=== PATIENT | female | born 1975 | race Caucasian/White ===

== ENCOUNTER 2023-04-29 08:18 | Day surgery (SDC) | payer OTHER, MEDICAID, SELFPAY ==
[2023-04-22 10:58] VITALS: BMI 29.0
[2023-04-29] VITALS (10 sets, daily range): BP systolic 107–129; BP diastolic 63–83; PULSE 63–99; RESP 9–18; TEMP 36.2–37.2; O2SAT 97–99; BMI 29.0
--- NOTE | 2023-04-29 | PATH_ITS ---
[facility] Accession Number: [id number] No. of containers..01 Tissue . 01 Material submitted: . foot - LEFT FOOT MASS . 01 Diagnosis: Left Foot, Excision: Fragment of bone with mild reactive changes; see comment. [facility] 05/15/2023 1106 Local . 01 Comment: An additional step section is examined. The findings are not entirely specific. There are no diagnostic features of a ganglion cyst identified in the sections examined. Clinical correlation is suggested. . This case has been reviewed by Dr. Karon Evangelista, who agrees with the above diagnosis. . 01 Electronically signed: . Leon Leblanc MD, Dermatopathologist NPI- [id number] . 01 Gross description: . The specimen is received in formalin labeled with the patient's name, , and left foot mass consists of a palmer hard tissue fragment consistent with osseous tissue measuring 1.6 x 0.9 x 0.5 cm. The specimen is trisected and submitted entirely in cassette A1 following decalcification. ([id number]) /MRV 05/02/2023 1300 Local . 01 Pathologist provided ICD-10: M89.9 . 01 CPT . 626299, [id number] Specimen Comment: A courtesy copy of this report has been sent to [facility] Performed at: 01 [facility] [address] [place] [address], [place], [place] [id number] MD Inocencio Dale MD Phone: [phone]
--- NOTE | 2023-04-29 08:32 | PM.HP.1 ---
History of Present Illness History of Present Illness Chief complaint: Left foot soft tissue mass Narrative: 47 year old female with recent onset of left foot pain with MRI positive for soft tissue mass. 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 Patient denies known trauma or previous condition in the past. An unsuccessful attempt for aspiration/injection was made prior to referral to Podiatry clinic. Discussed treatment options with patient electing to proceed with surgical intervention. Patient denines n/v/f/c/sob/cp. PFSH Medical History Thyroglossal duct cyst Surgical History H/O breast augmentation History of hysterectomy Hx of colonoscopy Social History household members: significant other Smoking Status: Never smoker alcohol intake: current Meds Home Medications and Allergies Home Medications Medication Instructions Recorded Confirmed Type valacyclovir 1 gram tablet 1,000 mg PO DAILY 04/22/23 04/22/23 History Allergies Allergy/AdvReac Type Severity Reaction Status Date / Time Sulfa (Sulfonamide Allergy Unknown Hives Verified 04/22/23 10:54 Antibiotics) codeine AdvReac Unknown nausea, Verified 04/22/23 10:54 headache green tea Allergy Severe disorientation, Uncoded 04/22/23 10:54 vomiting Review of Systems Review of Systems Narrative: Review of Systems Constitutional: Negative except as documented in history of present illness. Eye: Negative. Ear/Nose/Mouth/Throat: Negative. Respiratory: Negative. Cardiovascular: Negative. Gastrointestinal: Negative. Genitourinary: Negative. Musculoskeletal: Negative. Neurologic: Paresthesia to left foot. Psychiatric: Negative. Assessment & Plan Assessment and plan (1) Mass of joint of left foot: Status: Acute Plan Patient seen and evaluated. Discussed treatment options with patient electing to proceed with surgical intervention. Benefits and risks, such as infection, recurrence, neurovascular damage, blood clot, delayed healing, or other complications discussed with all patient's questions answered to satisfaction and no guarantees made. Patient elected to proceed with surgical removal of the soft tissue mass.
[2023-04-29] MEDS: LACTATED RINGERS 1,000 ML 100 ML IV ×2 (09:08→10:19)
[2023-04-29] MEDS: CEFAZOLIN 2 GM/100 ML PREMIX 100 ML IV (09:48)
--- NOTE | 2023-04-29 09:59 | SUR.OPER ---
Supine on padded OR bed, head on pillow, arms secured on padded arm boards at <90 degrees abduction, legs uncrossed, safety belt at thigh, tape over blanket over lower legs.
[2023-04-29] MEDS: BUPIVACAINE 0.5% (PF) 30 ML VIAL INJ (10:09)
--- NOTE | 2023-04-29 11:18 | P.OP_ITS ---
Operative Date/Time/Diagnoses Date of procedure: 04/29/23 Pre-op diagnosis: 1. Left foot soft tissue mass 2. Left foot neuritis. Post-op diagnosis: other (1. Left foot bone cyst 2. Left foot neuritis) Procedure & Clinicians Procedure: Left foot excision of bone cyst (CPT 14777) Same procedure as scheduled: No Indications: Painful lump at the midfoot and radiating nerve pain for more than 5 months. Surgeon: Pramod Prince Click Yes if Unassisted: Yes Anesthesia Type: Sedation Operative Notes Findings: 1.2 x 1.2 cm firm, well-circumscribed, raised nodule with hemorrhagic surface and mimimal serous fluid at the dorsal-lateral aspect of left anterior calcaneus. Closure Type: primary Estimated Blood Loss (mL): 5 Blood products transfused: none Tourniquet time (min): 37 Procedure in detail: The patient was brought to the operating room in the supine position and trans ferred to the operating table in the same supine position. Her left foot was dressed and draped in appropriate aseptic technique, and ankle tourniquet set at 250 mmHg was placed on her left ankle, which would be inflated for a total of 37 minutes. Local anesthesia was also administered to the foot using approximately 6 cc of 1% lidocaine plain The patient also received 2 gram Ancef IV prior to the procedure for antibiotic prophylaxis. Timeout was performed with all surgical team in agreement. An incision, approximately 3.5 cm long, was placed over her left lateral hindfoot where an indurated mass was palpable. Dissection was carried down through the layers with careful attention to identify and avoid vital neurovascular structures. The raised mass was found to be underneath the extensor digitorum brevis (EDB) muscle belly, and impingement to branches of superficial peroneal nerve was deemed possible due to presentation of size and location. Decision was made to free up the EDB origin, and a 1.2 x 1.2 cm firm, well-circumscribed, raised nodule with hemorrhagic surface and mimimal serous fluid at the dorsal-lateral aspect of anterior calcaneus was identified. Uncertain etiology with possible differential including ruptured or periosteal ganglion cyst, or hypertrophic non-union of anterior process fracture. The lesion was removed using osteotomy and sent to Pathology for gross evaluation. The site of excision was noted to have normal morphology, which was rasped down to smooth surface then covered with bone wax. The surrounding areas were further investigated with no evidence of abnormality. The procedure site was then closed from deep to superficial using 3-0 vicryl and 3-0 prolene. A sterile compressive dressing was placed on the patient?s foot, and the tourniquet was let down. All counts were correct. All digits became pink and warm with good capillary refill times. The patient left the OR in stable condition and will follow-up outpatient as scheduled. Post-operative Condition: stable Disposition: same day surgery Plan for aftercare: NWB. Keep dressing C/D/I. Take pain medications as instructed.
[2023-04-29] MEDS: ONDANSETRON 4 MG/2 ML INJ IV (11:21)
[2023-04-29] MEDS: fentaNYL 100 MCG/2 ML INJ IV (11:21)
[2023-04-29] MEDS: OXYCODONE/ACETAMINOPHEN 5/325 TABLET 1 TAB PO (11:47)
== END 2023-04-29 12:27 | disposition home or self-care (01) ==
PROVIDERS: Referring Provider Podiatrist Foot & Ankle Surgery; Visit Provider Podiatrist Foot & Ankle Surgery
PROC: (CPT 28100; principal; 2023-04-29 09:45)
DX: M85.472 Solitary bone cyst, left ankle and foot (principal); M79.2 Neuralgia and neuritis, unspecified
CPT/HCPCS: 28100; J0690; J1100; J1885; J2405; J2704; J3010

== ENCOUNTER → 2023-07-08 11:43 | Outpatient (CLI) | payer OTHER, MEDICAID, SELFPAY ==
--- NOTE | 2023-07-08 11:44 | DI.MRI.S_ITS ---
PROCEDURE: MR FOOT LT WO/W CON INDICATIONS: Neuralgia and neuritis, unspecified TECHNIQUE: Noncontrast long-axis T1 spin echo and T2 fast spin echo with fat saturation, short-axis T1 spin echo with and without fat saturation, and short-axis T2 fast spin echo with fat saturation. After the administration of contrast, short-axis T1 spin echo with fat saturation through the forefoot. COMPARISON: [place], , MRI FOOT UNILATERAL WO CONTRAST, 01/18/2023, 12:37. FINDINGS: Image quality: Excellent. Bones and joints: No bone marrow contusions or metatarsal stress fractures. Mild osteoarthritic changes are noted involving 3rd TMT joint with joint space narrowing, subchondral sclerosis and subcortical cystic changes. Mild 1st MTP joint osteoarthritic changes also seen with joint space narrowing and subchondral sclerosis. No intraosseous lesions. No abnormal intraosseous enhancement. Soft tissues: No enhancing lesions between the metatarsal heads to suggest Fuentes's neuromas. No rim-enhancing intermetatarsal bursal fluid collections are present. The visualized plantar foot muscles demonstrate normal signal and bulk. Visualized flexor and extensor tendons appear intact, without tenosynovitis. IMPRESSION: 1. No enhancing soft tissue mass . No evidence of neuroma. No drainable fluid collection. No peripherally enhancing intermetatarsal bursal fluid to suggest bursitis. 2. Mild midfoot and forefoot joint osteoarthritis. No fracture or dislocation. No metatarsal stress fractures. No abnormal intraosseous enhancement. 3. Tendons and ligaments of midfoot and forefoot are grossly intact. Dictated by: Skip Payne M.D. on 07/08/2023 at 14:59 Approved by: Skip Payne M.D. on 07/08/2023 at 15:04
== END ==
PROVIDERS: Referring Provider Podiatrist Foot & Ankle Surgery; Visit Provider Podiatrist Foot & Ankle Surgery
DX: M79.2 Neuralgia and neuritis, unspecified (principal); M25.572 Pain in left ankle and joints of left foot; M19.072 Primary osteoarthritis, left ankle and foot
CPT/HCPCS: 73720; A9579

== ENCOUNTER 2024-02-17 10:57 | Day surgery (SDC) | payer OTHER, MEDICAID, SELFPAY ==
[2024-02-12 14:28] VITALS: BMI 29.2
[2024-02-17] VITALS (12 sets, daily range): BP systolic 96–136; BP diastolic 63–91; PULSE 70–90; RESP 12–16; TEMP 36.1–36.4; O2SAT 96–100; BMI 29.0
--- NOTE | 2024-02-17 | PATH_ITS ---
[facility] Accession Number: [id number] No. of containers..01 Tissue . 01 Material submitted: . foot - LEFT FOOT . 01 Diagnosis: LEFT FOOT, EXCISIONS: Fragments of mature fibroadipose tissue, consistent with lipoma. V 02/21/2024 1240 Local . 01 Electronically signed: . Leon Leblanc MD, Dermatopathologist NPI- [id number] . 01 Gross description: . Received in formalin with two patient identifiers and left foot soft tissue masses, are multiple yellow lobulated soft tissue fragments ranging from 0.4 x 0.2 x 0.1 cm to 0.9 x 0.7 x 0.5 cm. The fragments are differentially inked, the largest fragments are sectioned, and the specimen is submitted entirely in cassettes A1 and A2. ([id number]) /V 02/21/2024 1239 Local . 01 Pathologist provided ICD-10: D17.9 . 01 CPT . 100989 Specimen Comment: A courtesy copy of this report has been sent to [facility] Pathology Performed at: [address] [id number] MD Inocencio Dale MD Phone: [phone]
--- NOTE | 2024-02-17 08:00 | PM.HP.1 ---
History of Present Illness History of Present Illness Chief complaint: Left Podiatry Soft Tissue Narrative: 48 year old female with worsening pain from left heel soft tissue masses. Patient failed conservative treatment and would like to proceed with surgical resection. Patient denies n/v/f/c/sob/cp. PFSH Medical History (Updated 02/12/24 @ 14:39 by Sade Cam RN) Anesthesia complication Arthritis Colitis CRPS (complex regional pain syndrome) Thyroglossal duct cyst Surgical History (Updated 02/12/24 @ 14:30 by Sade Cam RN) Hx of foot surgery (05/02/23) H/O breast augmentation History of hysterectomy Hx of colonoscopy Social History household members: significant other Smoking Status: Never smoker alcohol intake: current Meds Home Medications and Allergies Home Medications Medication Instructions Recorded Confirmed Type valacyclovir 1 gram tablet 1,000 mg PO DAILY 04/22/23 04/29/23 History oxycodone-acetaminophen 5 mg-325 1 tab PO Q6H PRN pain #30 tabs 04/29/23 Rx mg tablet (Percocet) budesonide 3 mg 3 mg PO 02/12/24 History capsule,delayed,extended release Allergies Allergy/AdvReac Type Severity Reaction Status Date / Time Sulfa (Sulfonamide Allergy Unknown Hives Verified 04/29/23 08:53 Antibiotics) codeine AdvReac Unknown nausea, Verified 04/29/23 08:53 headache green tea Allergy Severe disorientation, Uncoded 04/29/23 08:53 vomiting Exam Skin Other: Circular superficial masses x 5 to medial left heel. Neuro Other: NV intact to left foot. Assessment & Plan Assessment & Plan narrative: 1. Soft tissues masses, left foot. Patient seen and evaluated. Surgical plan: Left foot soft tissue masses removal. Risks and benefits reviewed with all questions answered to patient's satisfaction and no guarantees made. RTC for post-op.
--- NOTE | 2024-02-17 08:03 | PM.PREOP ---
Pre-operative Note Interval Note History & Physical reviewed/Exam performed by Physician: Yes Changes to H&P: No
--- NOTE | 2024-02-17 14:17 | SUR.PREOP ---
Called Dr De La Torre in OR#4. Informed MD of hx of PONV and car sickness. See order for scop patch.
[2024-02-17] MEDS: SCOPOLAMINE 1 PATCH TOP (14:53)
[2024-02-17] MEDS: LACTATED RINGERS 1,000 ML 42 ML IV (14:54)
[2024-02-17] MEDS: CEFAZOLIN 2 GM/100 ML PREMIX 100 ML IV (16:32)
--- NOTE | 2024-02-17 16:35 | SUR.OPER ---
Supine on padded OR bed, head on pillow, arms secured on padded arm boards at <90 degrees abduction, legs uncrossed, safety belt across abdomen, tape over blanket over non operative leg.
[2024-02-17] MEDS: BUPIVACAINE 0.5% (PF) 30 ML VIAL INJ (16:46)
[2024-02-17] MEDS: LIDOCAINE 1% 20 ML INJ (16:46)
[2024-02-17] MEDS: MEPERIDINE 50 MG/ML INJ 12.5 MG IV (17:50)
[2024-02-17] MEDS: hydrOXYzine 50 MG/ML INJ 25 MG IM (17:52)
[2024-02-17] MEDS: OXYCODONE IR 5 MG TABLET PO (17:58)
[2024-02-17] MEDS: fentaNYL 100 MCG/2 ML INJ IV ×3 (18:02→18:15)
[2024-02-17] MEDS: ONDANSETRON 4 MG/2 ML INJ IV (18:27)
--- NOTE | 2024-02-19 21:05 | P.OP_ITS ---
Operative Date/Time/Diagnoses Date of procedure: 02/17/24 Pre-op diagnosis: 1. Left foot lipomatous neoplasms Post-op diagnosis: same Procedure & Clinicians Procedure: 1. Left foot excision of soft tissue masses Same procedure as scheduled: Yes Indications: 1. Left foot pain and discomfort with failed relief from conservative management Surgeon: Pramod Prince Operative Notes Findings: Well-circumscribed, firm, subcutaneous papules x 5 Closure Type: primary Specimen(s): other Applied: graft(s) (AmnioFix) Estimated Blood Loss (mL): 10 Blood products transfused: none Tourniquet time (min): 29 Procedure in detail: Patient was identified, brought into operating room, and transferred onto operating table in supine position. Deep sedation was administered in operating room. 10 cc 1% lidocaine plain was administered to left heel. An ankle tourniquet was applied over well-padded surface and set to 250 mmHg. Left foot was prepped and draped in usual sterile fashion, followed by official timeout with all surgical team in agreement. Attention was directed to left medial heel. A laze-S incision incision was made using # 15 scalpel over the center of all 5 soft tissue masses identified along the medial and posterior heel. Dissection was carried out from skin down to s ubcutaneous tissue with attention to protect neurovascular structures. A curved metzenbaum scissor was used to carefully free up the papules and transact them at their respective base, which were passed off and sent to pathology for gross evaluation. All soft tissues masses were noted to be lipomatous in appearance. Procedure site was irrigated with copious saline. Decision was made to apply Amn ioFix to minimize adhesion and promote decompression of impinged nerves. Procedure site was then closed from deep to superficial using 3-0 vicryl, 3-0 and 4-0 nylons, and steri-strips. 10 cc 0.5% marcaine plain was administered. Left foot was cleansed, and sterile dressing was applied using iodine soaked Adaptic, gauze, abdominal pad, Kerlix, and elastic bandage wrap. All counts were correct. Patient tolerated procedure and left OR in stable condition. Complications: none Post-operative Condition: stable Disposition: same day surgery Plan for aftercare: Keep dressing clean, dry, and intact. Ice 15 min/hr when awake. Elevate above heart on 2+ pillows. Take medication as directed. RTC as scheudled.
== END 2024-02-17 18:52 | disposition home or self-care (01) ==
PROVIDERS: Referring Provider Podiatrist Foot & Ankle Surgery; Visit Provider Podiatrist Foot & Ankle Surgery
PROC: (CPT 28039; principal; 2024-02-17 12:15)
DX: D17.24 Benign lipomatous neoplasm of skin and subcutaneous tissue of left leg (principal)
CPT/HCPCS: 28039; J0690; J1100; J2175; J2250; J2405; J2704; J3010; J3410

== ENCOUNTER → 2025-03-18 11:25 | Outpatient (CLI) | payer OTHER, SELFPAY | PROVIDERS: PCP Physician Assistant; Referring Provider Physical Medicine & Rehabilitation; Visit Provider Physical Medicine & Rehabilitation | DX: G57.30 Lesion of lateral popliteal nerve, unspecified lower limb (principal) | CPT/HCPCS: 95886; 95912 ==

== ENCOUNTER → 2025-03-23 10:08 | Outpatient (CLI) | payer OTHER, SELFPAY ==
--- NOTE | 2025-03-23 10:09 | DI.NM.S_ITS ---
PROCEDURE: NM BONE 3 PHASE RADIOPHARMACEUTICAL: 22 mCi Tc-99m MDP IV. INDICATIONS: left LE CRPS TECHNIQUE: Multiple bone scintigrams were obtained after intravenous injection of Tc-99m MDP, including flow, blood pool, and delayed images centered to the region of interest. COMPARISON: None. FINDINGS: Symmetric normal appearing uptake throughout the bilateral feet on all 3 phases. IMPRESSION: Symmetric normal appearing uptake throughout the bilateral feet. Dictated by: Ernie Ritchie M.D. on 03/23/2025 at 16:27 Approved by: Ernie Ritchie M.D. on 03/23/2025 at 16:36
== END ==
PROVIDERS: PCP Physician Assistant; Referring Provider Physician Assistant; Visit Provider Physical Medicine & Rehabilitation
DX: G57.72 Causalgia of left lower limb (principal); Z98.890 Other specified postprocedural states
CPT/HCPCS: 78315; A9503